=== PATIENT | female | born 1955 | race Caucasian/White ===

== ENCOUNTER 2016-12-13 09:09 | Emergency (ER) | payer OTHER ==
[~2016-12-13] VITALS: Ht 154.9 cm; Wt 87.0 kg
[2016-12-13 09:25] VITALS: BP 161/94; PULSE 61; RESP 16; TEMP 98.1; O2SAT 100
[2016-12-13] MEDS ORDERED: ASPI-110 PO (09:27)
[2016-12-13] MEDS ORDERED: PROP10TA6 PO (09:27)
--- NOTE | 2016-12-13 09:41 | PD ---
HPI Chief Complaint: Fall Time Seen by Provider: 09:26 Travel History International Travel<30 days: No Contact w/Intl Traveler<30days: No Traveled to known affect area: No History of Present Illness HPI Patient is a 61-year-old female who presents to emergency room with complaints of left lower extremity pain and swelling. Patient reports that 2 weeks ago, she fell on a curb and landed on both her knees. She reports that she developed a hematoma to her left knee and reports that she has had increased swelling for the past 2 weeks. Patient reports that she went to her chiropractor the other day and was instructed to go to the emergency room to rule out blood clot before her drive home to [facility] in the next few days. Patient denies history of PE or DVT, denies chest pain or shortness of breath at this time. Patient reports that she has been walking on both legs without any difficulty since the fall. Patient with no complaints. PFSH Past Medical History Hypertension: Yes Tetanus Vaccination: < 5 Years Influenza Vaccination: Yes ?: Not Menopausal: Yes Past Surgical History Appendectomy: Yes Cholecystectomy: Yes Hysterectomy: Yes Tonsillectomy: Yes (and adenoids) Other Surgery: Yes (Breast red.) Social History Alcohol Use: Yes (Occ.) Tobacco Use: No Substance Use: No Allergies-Medications (Allergen,Severity, Reaction): Coded Allergies: Tramadol (Verified Allergy, Severe, Hives, 12/13/16) Reported Meds & Prescriptions Reported Meds & Active Scripts Active Reported Propranolol (Propranolol HCl) 10 Mg Tab 10 Mg PO DAILY Aspirin 81 (Aspirin) 81 Mg Tabdr 81 Mg PO DAILY Review of Systems General / Constitutional: No: Fever Eyes: No: Visual changes HENT: No: Headaches Cardiovascular: No: Chest Pain or Discomfort Respiratory: No: Shortness of Breath Gastrointestinal: No: Abdominal Pain Genitourinary: No: Dysuria Musculoskeletal: Positive: Edema, Pain (left calf) Skin: No Rash Neurologic: No: Weakness Psychiatric: No: Depression Endocrine: No: Polydipsia Hematologic/Lymphatic: No: Easy Bruising Physical Exam Narrative GENERAL: No acute distress, nontoxic SKIN: Warm and dry. HEAD: Atraumatic. Normocephalic. EYES: Pupils equal and round. No injection or drainage. ENT: No nasal bleeding or discharge. Mucous membranes pink and moist. NECK: Trachea midline. No JVD. CARDIOVASCULAR: Regular rate and rhythm. No murmur appreciated. RESPIRATORY: No accessory muscle use. Clear to auscultation. Breath sounds equal bilaterally. GASTROINTESTINAL: Abdomen soft, non-tender, nondistended. Hepatic and splenic margins not palpable. MUSCULOSKELETAL: No obvious deformities. No clubbing. Patient with increased bruising to the left knee, left anterior tib-fib, patient with left calf tenderness, no obvious swelling, no obvious fracture, pulses intact, neurovascularly intact Right lower extremity: Bruising to right knee, no obvious deformities, pulses intact, neurovascularly intact. NEUROLOGICAL: Awake and alert. No obvious cranial nerve deficits. Motor grossly within normal limits. Normal speech. PSYCHIATRIC: Appropriate mood and affect; insight and judgment normal. Data Data Last Documented VS Vital Signs Date Time Temp Pulse Resp B/P Pulse Ox O2 Delivery O2 Flow Rate FiO2 12/13/16 11:35 58 14 124/73 98 Room Air 12/13/16 09:25 98.1 Orders Us Leg Venous Doppler (12/13/16 ) MDM Medical Decision Making Medical Screen Exam Complete: Yes Emergency Medical Condition: Yes Interpretation(s) Vital Signs Date Time Temp Pulse Resp B/P Pulse Ox O2 Delivery O2 Flow Rate FiO2 12/13/16 09:25 98.1 61 16 161/94 100 Differential Diagnosis DVT, hematoma, superficial thrombophlebitis Narrative Course Patient is a 61-year-old female who presents to emergency room for evaluation of possible DVT. Patient reports that she fell on her knees outside 2 weeks ago and developed bruising to both knees. Patient reports that her left knee is more bruising her right knee. Patient reports increased pain with range of motion to her left knee, reports cramping to her calf. Patient reports that she was instructed to come to the emergency room by her chiropractor to rule out DVT. Patient reports family history of DVT, patient herself has never had any DVT or PE. She currently with no shortness breath at this time. Ultrasound of leg ordered. Last Impressions Lower Extremity Ultrasound 12/13/16 0000 Signed Impressions: Service Date/Time: Tuesday, December 13, 2016 10:43 - CONCLUSION: Negative exam. No sonographic or Doppler findings of deep venous thrombosis. Ovidio Russo MD A copy of patient's ultrasound report was given to her. Patient will follow-up with her primary care doctor and will return to the emergency room as needed. Patient understands need for repeat ultrasound in 1 week if swelling persists. Diagnosis Primary Impression: Left leg swelling Patient Instructions: Narcotic given in the ED Additional Instructions: Please follow-up with her primary care doctor Return to the emergency room as needed Please have a follow-up ultrasound of your leg in one week if swelling and cramping persists Please bring the copy of your ultrasound report to doctor's office for follow-up Disposition: 01 DISCHARGE HOME Condition: Stable America Ferrer DO Dec 13, 2016 09:41
--- NOTE | 2016-12-13 11:19 | RADHPO ---
EXAM DATE/TIME: 12/13/2016 10:43 [facility] COMPARISON: No previous studies available for comparison. INDICATIONS : Left leg pain and swelling after a fall two weeks ago. MEDICAL HISTORY : Hypertension. SURGICAL HISTORY : Appendectomy. Cholecystectomy. Hysterectomy. Breast reduction. ENCOUNTER: Initial ACUITY: 2 weeks PAIN SCORE: 3/10 LOCATION: Right leg. TECHNIQUE: Venous ultrasound of the leg was performed from the inguinal ligament to the proximal calf. Real-elias e, color Doppler and spectral tracing, compression and augmentation techniques were used. FINDINGS: There is normal compressibility of the deep venous system from the inguinal region to the proximal ca lf. No echogenic clot is seen in the lumen of the common femoral, femoral, popliteal, and posterior tibial veins. There is a normal response of the venous system to proximal and distal augmentation an d respiration. CONCLUSION: Negative exam. No sonographic or Doppler findings of deep venous thrombosis. Ovidio Russo MD on December 13, 2016 at 11:17 Board Certified Radiologist. This report was verified electronically.
[2016-12-13 11:35] VITALS: BP 124/73; PULSE 58; RESP 14; O2SAT 98
== END 2016-12-13 11:55 | disposition home or self-care (01) ==
LOC: PHED 09:09
DX: R22.42 Localized swelling, mass and lump, left lower limb (principal); I10 Essential (primary) hypertension; W10.1XXD Fall (on)(from) sidewalk curb, subsequent encounter
CPT/HCPCS: 93971